=== PATIENT | male | born 1950 | race African-American/Black ===

== ENCOUNTER 2021-08-05 04:34 | Day surgery (SDC) | payer OTHER ==
[2021-08-05 07:38] VITALS: BMI 21.9
[2021-08-05] MEDS ORDERED: PROPOFOL 20 ML ONE (09:23)
[2021-08-05] MEDS ORDERED: MIDAZOLAM HCL 2 MG/2 ML SINGLE DOSE VIAL ONE (09:23)
[2021-08-05] MEDS ORDERED: oxyCODONE HCL 5 MG TABLET PO PRN (10:30)
[2021-08-05] MEDS ORDERED: ONDANSETRON 4 MG/2 ML VIAL IVPUSH PRN (10:30)
[2021-08-05] MEDS ORDERED: LACTATED RINGERS SOLUTION 1,000 ML IV SCH (10:30)
[2021-08-05] MEDS ORDERED: ACETAMINOPHEN 500 MG TABLET (FP) PO SCH (10:30)
[2021-08-05 12:48] VITALS: BP 134/76; PULSE 52; TEMP 98.7
== END 2021-08-05 12:00 | disposition home or self-care (01) ==
LOC: JASU-SURG 04:34
PROVIDERS: ATTEND Urology
PROC: 0TF4XZZ Fragmentation in Left Kidney Pelvis, External Approach (ICD-10-PCS; principal; 2021-08-05 09:30)
DX: N20.0 Calculus of kidney (principal)